=== PATIENT | female | born 1930 | race Caucasian/White ===

== ENCOUNTER 2018-09-21 21:42 | Observation (INO) | payer MEDICARE, OTHER ==
[~2018-09-21] VITALS: Ht 162.6 cm; Wt 75.7 kg
[~2018-09-21 21:42] MED LIST: ALPRAZOLAM; BENADRYL25 MG PO; COZAAR 25 MG TA25 M1 PO; EXFORGE; EXFORGE 5-1601 EACH PO; FENTANYL 0.50 MCG/ML IV PUSH; GABAPENTIN; HYDROCHLOROTHIA25 M2 PO; HYDROCODON-ACE1 EAC7 PO; HYDROCORTISONE30 G9 TOP; KEFLEX500 MG PO; LASIX 40 MG TAB40 M2 PO; LOPRESSOR50 PO; METANX TABLET1 EAC1 PO; MIRALAX255 GM PO; NEURONTIN 300300 M1 PO; ONDANSETRON HCL4 M2 PO; REGLAN 10 MG TA10 M1 PO; REGLAN 10 MG TA10 MG PO; ULTRAM 50MG TAB50 MG PO; XANAX 0.25 MG0.25 MG PO; ZOFRAN4 MG PO
[2018-09-21 22:00] VITALS: BP 132/93
[2018-09-21 22:37] LABS: ABSOLUTE BASOPHILS 0.1 thou/uL (0.0-0.2); ABSOLUTE EOSINOPHILS 0.1 thou/uL (0.0-0.7); ABSOLUTE LYMPHOCYTES 1.6 thou/uL (0.8-5.3); ABSOLUTE MONOCYTES 0.7 thou/uL (0.0-1.2); ABSOLUTE NEUTROPHILS 5.3 thou/uL (1.6-8.1); EOSINOPHILS 0.7 %; LYMPHOCYTES 20.4 %; MCH 32.8 pg (26.0-34.0); MCHC 33.4 g/dL (28.0-37.0); MCV 98.3 fL (80.0-100.0); MONOCYTES 9.2 %; MPV 7.1 fl. (7.2-11.1); NUCLEATED RBCS 0 /100WBC; PLATELET COUNT* 345 thou/uL (150-400); POLYS 68.7 %; RBC 4.58 mil/uL (4.20-5.00); RDW-CV 13.4 % (10.5-14.5); WBC 7.7 thou/uL (4.0-11.0)
[2018-09-21 22:49] LABS: ANION GAP 6 mmol/L (7-16); BUN 15 mg/dL (7-18); CALCIUM 10.2 mg/dL (8.5-10.1); CHLORIDE 102 mmol/L (98-107); CO2 31 mmol/L (21-32); CREATININE 1.1 mg/dL (0.6-1.3); GLUCOSE 129 mg/dL (70-99); SODIUM 139 mmol/L (136-145)
[2018-09-21 23:00] LABS: ALBUMIN 4.1 g/dL (3.4-5.0); ALKALINE PHOSPHATASE 87 U/L (46-116); LIPASE 99 U/L (73-393); NT-PRO BRAIN NAT PEPTIDE 806 pg/mL (<300); SGOT 25 U/L (15-37); SGPT 25 U/L (30-65); TOTAL BILIRUBIN 0.6 mg/dL (<0.1-1.0); TOTAL PROTEIN 7.7 g/dL (6.4-8.2); TROPONIN-I LEVEL <0.06 ng/mL (<0.06)
[2018-09-22] VITALS (8 sets, daily range): BP systolic 133–186; BP diastolic 62–90
[2018-09-22 00:14] LABS: URINE BILIRUBIN NEGATIVE (Negative); URINE BLOOD TRACE (Negative); URINE CLARITY CLEAR; URINE COLOR YELLOW; URINE GLUCOSE-RANDOM NEGATIVE (Negative); URINE KETONES NEGATIVE (Negative); URINE LEUKOCYTES-REFLEX NEGATIVE (Negative); URINE NITRITE-REFLEX NEGATIVE (Negative); URINE PROTEIN NEGATIVE (Negative); URINE UROBILINOGEN 0.2 E.U./dl (0.2-1.0)
--- NOTE | 2018-09-22 02:33 | NUR ---
PT RECIEVED FROM ED. SAT MAINTAINED IN RA. ALERT AND ORIENTED X 4. CALL LIGHT WITHIN REACH AND BED IN LOW POSITION. DENIES PAIN AND SOB. RUNNING SR ON THE MONITOR.
--- NOTE | 2018-09-22 09:07 | NUR ---
ASSUMED CARE OF PT THIS AM AROUND 714- HAZMAT TECHNICIAN IN PLACE ORDERED, TRACING SA WITH 1ST DEGREE- UPON ASSESSMENT PT NOTED TO BE RESTING IN BED- PT A&O X4 WITH FORGETFULLNESS NOTED- CONTINENT OF BOWEL AND BLADDER WITH OCCASSIONAL STRESS INCONTINENTS NOTED REPORTED- LCTA, RESP EVEN AND UN-LABORED- VSS, O2 SAT 93% ON RA- ABD SOFT/ROUND/NON-TENDER, BS X4 QUADS-LAST BM REPORTED THIS AM- PT CURRENLTY NPO ORDERED R/T N/V-IV NOTED TO RIGHT AC INTACT AND SL- PT RATES ABD PAIN 09/07, BUT DENEIS NEEDS FOR PAIN MEDICATIONS AT THIS TIME- CALL LIGHT AND PERSONAL BELONGINGS WITH IN REACH- HOURLY ROUNDS IN PLACE R/T SAFETY/NEEDS- ALL NEEDS MET AT THIS TIME-WCTM
--- NOTE | 2018-09-22 10:30 | EKG ---
[place] [address] ELECTROCARDIOGRAM REPORT Name: MANDIE VASQUEZ Room: [address] ADM IN M.R.#: [id number] Admission: 09/22/18 Attend Phys: Alayna Alvarado Discharge: Date of : 34 Report #: [id number] THIS REPORT FOR: //name// [facility] ED Test Date: 2018-09-21 Test Time: 22:33:39 Pat Name: MANDIE VASQUEZ Department: Room: [facility] Gender: F Account Consultant: AP : 1930 Requested By: Olivia Newton Order Number: [id number] MD: Unruly Barone Measurements Intervals [place] Rate: 58 P: 41 [place]: 223 QRS: -35 QRSD: 96 T: -2 QT: 426 QTc: 419 Interpretive Statements Sinus rhythm Prolonged [place] interval Left ventricular hypertrophy Anterior Q waves, possibly due to LVH Borderline T abnormalities, inferior leads Compared to ECG 05/08/2016 16:53:30 T-wave abnormality now present Electronically Signed On 09-22-2018 10:29:45 JACQUARD LOOM HEDDLES TIER by Unruly Barone [email or web address] <ELECTRONICALLY SIGNED> By: Unruly Barone MD, [facility] 09/22/18 1029 2233 2233 Unruly Barone MD, [facility] /EPI
--- NOTE | 2018-09-22 13:05 | NUR ---
Pt is A&O. Resides at home alone. Normally active and independent. Pt continues to cook and drive, Pt has a cleaning lady. Supportive children that also assist as needed. Pt has a cane and walker that she uses PRN. No home o2. No hx fo HH or SNF. Goal is home at dc, no needs anticipated.
[2018-09-22] MEDS ORDERED: BENTYL 20 MG TA20 M1 PO (13:46)
[2018-09-22] MEDS ORDERED: NEXIUM40 MG PO (13:47)
[2018-09-22] MEDS ORDERED: MIRALAX17 GM PO (13:47)
[2018-09-22] MEDS ORDERED: BENTYL 10 MG CA10 MG PO (13:51)
--- NOTE | 2018-09-22 14:19 | NUR ---
ORDERS GIVEN THIS SHIFT FOR OKAY TO D/C HOME IF ABLE TO TOLERATE REGULAR DIET THIS SHIFT WITH NO COMPLAINTS- PT HAD GOOD PO INTAKE AT LUNCH WITH NO C/O PAIN/DISCOMFORT THIS SHIFT- HERE TO ASSESS WITH OKAY RECIEVIED FOR PT TO BE D/C'D TO HOME- IV TO RIGHT AC D/C'D ALONG WITH INDUSTRIAL CUSTODIAN PRIOR TO D/C- D/C EDUCATION/TEACHING GIVEN TO PT AND SON AT TIMEM OF D/C WITH ALL QUESTIONS AND CONCERNS ADDRESSED- WRITTEN EDUCATION ALONG WITH SCRIPTS PROVIDED TO PT PRIOR TO D/C- NEED FOLLOW UP COMMUNICATED WITH VERBAL UNDERSTANDING RECIEVIED PER PT- BELONGINGS PACKED AND ACCOUNTED FOR PER PT AND SON- PT ESCORTED PER TECH VIA W/C WITH BELONGINGS; SON AT SIDE TO VEHICLE AT 1422- NO PROBLEMS TO NOTE AT TIME OF D/C
== END 2018-09-22 14:22 | disposition home or self-care (01) ==
LOC: M.ERS 21:42 → M.2W 09-22 00:25 → M.TBA-ER 09-22 00:25 → M.2W 09-22 00:25
PROVIDERS: Family Medicine; Nurse Practitioner; ADMIT Internal Medicine
DX: R10.9 Unspecified abdominal pain (principal); R11.2 Nausea with vomiting, unspecified; K58.9 Irritable bowel syndrome, unspecified; K21.9 Gastro-esophageal reflux disease without esophagitis; I12.9 Hypertensive chronic kidney disease with stage 1 through stage 4 chronic kidney disease, or unspecified chronic kidney disease; N18.3 Chronic kidney disease, stage 3 (moderate); G62.9 Polyneuropathy, unspecified; Z79.82 Long term (current) use of aspirin; Z79.899 Other long term (current) drug therapy

== ENCOUNTER 2019-04-28 13:52 | Observation (INO) | payer MEDICARE, OTHER ==
[~2019-04-28] VITALS: Ht 154.9 cm; Wt 78.0 kg
[~2019-04-28 13:52] MED LIST changes: +BENTYL 10 MG CA10 MG PO; +BENTYL 20 MG TA20 M1 PO; +MIRALAX17 GM PO; +NEXIUM40 MG PO
[2019-04-28 13:58] VITALS: BP 149/78
[2019-04-28] MEDS ORDERED: ZESTRIL40 MG PO (14:03)
[2019-04-28] MEDS ORDERED: NORVASC2.5 MG PO (14:03)
[2019-04-28] MEDS ORDERED: ASPIR 8181 MG PO (14:05)
[2019-04-28 14:25] LABS: URINE BILIRUBIN NEGATIVE (Negative); URINE BLOOD 1+ (Negative); URINE CLARITY CLEAR; URINE COLOR YELLOW; URINE GLUCOSE-RANDOM NEGATIVE (Negative); URINE KETONES NEGATIVE (Negative); URINE LEUKOCYTES 1+ (Negative); URINE NITRITE NEGATIVE (Negative); URINE PROTEIN 2+ (Negative); URINE UROBILINOGEN 0.2 E.U./dl (0.2-1.0)
[2019-04-28 14:40] LABS: BACTERIA 1-9 Few /HPF (None Seen); CRYSTALS None Seen /LPF (None Seen); HYALINE CASTS 0-3 Few /LPF (None Seen); MUCUS 0-3 Light strn/LPF (None Seen); SQUAMOUS 4-10 Moderate /LPF (0-3); URINE RBC 3-10 Few /HPF (0-2); URINE WBC 6-15 Few /HPF (0-5)
[2019-04-28 14:42] LABS: ABSOLUTE BASOPHILS 0.1 thou/uL (0.0-0.2); ABSOLUTE EOSINOPHILS 0.1 thou/uL (0.0-0.7); ABSOLUTE LYMPHOCYTES 1.4 thou/uL (0.8-5.3); ABSOLUTE MONOCYTES 0.7 thou/uL (0.0-1.2); BASOPHILS 1.1 %; EOSINOPHILS 0.8 %; HEMATOCRIT 43.8 % (37.0-47.0); HEMOGLOBIN 14.8 gm/dL (12.0-15.0); LYMPHOCYTES 19.7 %; MCH 34.1 pg (26.0-34.0); MCHC 33.7 g/dL (28.0-37.0); MCV 101.1 fL (80.0-100.0); MONOCYTES 10.2 %; NUCLEATED RBCS 0 /100WBC; PLATELET COUNT* 365 thou/uL (150-400); POLYS 68.2 %; RBC 4.34 mil/uL (4.20-5.00); RDW-CV 13.7 % (10.5-14.5); WBC 7.3 thou/uL (4.0-11.0)
[2019-04-28 15:02] LABS: CALCIUM 9.5 mg/dL (8.5-10.1); POTASSIUM 4.3 mmol/L (3.5-5.1)
[2019-04-28 15:06] LABS: ALBUMIN 4.3 g/dL (3.4-5.0); TOTAL BILIRUBIN 0.5 mg/dL (<0.1-1.0); TOTAL PROTEIN 7.3 g/dL (6.4-8.2)
[2019-04-28 15:40] VITALS: BP 116/95
[2019-04-28 18:17] VITALS: BP 146/48
[2019-04-28 19:26] VITALS: BP 154/80
[2019-04-29] VITALS: BP 140/59
[2019-04-29 04:00] VITALS: BP 145/94
[2019-04-29 04:59] LABS: CALCIUM 8.5 mg/dL (8.5-10.1); CREATININE 0.9 mg/dL (0.6-1.3); MAGNESIUM 2.1 mg/dL (1.8-2.4); POTASSIUM 3.6 mmol/L (3.5-5.1)
[2019-04-29 05:02] LABS: ABSOLUTE EOSINOPHILS 0.2 thou/uL (0.0-0.7); ABSOLUTE LYMPHOCYTES 1.5 thou/uL (0.8-5.3); ABSOLUTE MONOCYTES 0.9 thou/uL (0.0-1.2); ABSOLUTE NEUTROPHILS 5.9 thou/uL (1.6-8.1); BASOPHILS 0.5 %; EOSINOPHILS 1.9 %; HEMOGLOBIN 13.1 gm/dL (12.0-15.0); LYMPHOCYTES 17.7 %; MCH 34.1 pg (26.0-34.0); MCHC 33.5 g/dL (28.0-37.0); MCV 101.8 fL (80.0-100.0); MONOCYTES 10.3 %; MPV 6.4 fl. (7.2-11.1); NUCLEATED RBCS 0 /100WBC; PLATELET COUNT* 319 thou/uL (150-400); POLYS 69.6 %; RBC 3.83 mil/uL (4.20-5.00); RDW-CV 13.7 % (10.5-14.5); WBC 8.5 thou/uL (4.0-11.0)
[2019-04-29 08:00] VITALS: BP 146/67
[2019-04-29 12:16] VITALS: BP 119/53
[2019-04-29] MEDS ORDERED: MIRALAX17 GM PO (12:22)
[2019-04-29] MEDS ORDERED: NEXIUM40 MG PO (12:22)
[2019-04-29 13:37] VITALS: BP 119/53
--- NOTE | 2019-04-30 07:34 | EKG ---
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: : 1930 Requested By: Jaswinder Abraham Order Number: [id number] MD: Akbar Carbajal Measurements Intervals [place] Rate: 70 P: 45 [place]: 251 QRS: -38 QRSD: 94 T: -15 QT: 401 QTc: 433 Interpretive Statements Sinus rhythm Atrial premature complex Prolonged [place] interval Left ventricular hypertrophy Anterior infarct, old Borderline T abnormalities, inferior leads Compared to ECG 09/21/2018 22:33:39 Atrial premature complex(es) now present T-wave abnormality still present Electronically Signed On 04-30-2019 7:33:51 CDT by Akbar Carbajal [email or web address] <ELECTRONICALLY SIGNED> By: Akbar Carbajal MD, FACC 04/30/19 0733 1604 1604 Akbar Carbajal MD, FAC /EPI
== END 2019-04-29 14:35 | disposition home or self-care (01) ==
LOC: M.ERS 13:52 → M.TBA-ER 15:24 → M.2W 15:24 → M.ERS 15:41 → M.TBA-ER 15:55 → M.2W 18:27
PROVIDERS: Nurse Practitioner Family; ADMIT Family Medicine
DX: N39.0 Urinary tract infection, site not specified (principal); I16.1 Hypertensive emergency; I12.9 Hypertensive chronic kidney disease with stage 1 through stage 4 chronic kidney disease, or unspecified chronic kidney disease; N18.3 Chronic kidney disease, stage 3 (moderate); K58.1 Irritable bowel syndrome with constipation; K21.9 Gastro-esophageal reflux disease without esophagitis; R11.2 Nausea with vomiting, unspecified; F41.9 Anxiety disorder, unspecified; G62.9 Polyneuropathy, unspecified; Z88.8 Allergy status to other drugs, medicaments and biological substances; Z79.82 Long term (current) use of aspirin; Z79.899 Other long term (current) drug therapy

== ENCOUNTER → 2019-05-24 | Outpatient (CLI) | payer MEDICARE, OTHER ==
[~2019-05-24] MED LIST changes: +ASPIR 8181 MG PO; +NORVASC2.5 MG PO; +ZESTRIL40 MG PO
== END ==
LOC: M.ULTRA 07:31
DX: R11.2 Nausea with vomiting, unspecified (principal); R10.13 Epigastric pain

== ENCOUNTER → 2020-07-07 | Outpatient (CLI) | payer MEDICARE, OTHER ==
--- NOTE | 2020-07-07 15:10 | 2DMMODE ---
[place] [address] 2 D/M-MODE ECHOCARDIOGRAM Name: MANDIE VASQUEZ Room: [facility]#: [id number] Admission: 07/07/20 Attend Phys: Kiersten Rosen Discharge: Date of : 34 Date of Service: 07/07/20 1510 Report #: [id number] THIS REPORT FOR: cc: Frank Tolliver MD, Matthew W. MD Holkins, John M. MD [facility] ~ APPROVED REPORT Study performed: 07/07/2020 10:42:36 EXAM: Comprehensive 2D, Doppler, and color-flow Echocardiogram Patient Location: Out-Patient BSA: 1.85 HR: 58 bpm BP: 152/88 mmHg Other Information Study Quality: Good Indications Hypertension/HDD 2D Dimensions IVSd: 14.16 (7-11mm) LVOT Diam: 20.45 (18-24mm) LVDd: 39.43 mm PWd: 10.94 (7-11mm) Ascending Ao: 31.06 (22-36mm) LVDs: 27.13 (25-40mm) Aortic Root: 28.02 mm Volumes Left Atrial Volume (Systole) LA ESV Index: 18.50 mL/m2 Aortic Valve AoV Peak Giuseppe.: 1.48 m/s AO Peak Gr.: 8.75 mmHg LVOT Max P.20 mmHg AO Mean Gr.: 4.35 mmHg LVOT Mean P.83 mmHg LVOT Max V: 1.02 m/s AO V2 VTI: 30.57 cm LVOT Mean V: 0.60 m/s GRECIA (VTI): 2.67 cm2 LVOT V1 VTI: 24.83 cm AI Alger: 2.68 m/s2 AI PHT: 489.10 [place] [address] 2 D/M-MODE ECHOCARDIOGRAM Name: MANDIE VASQUEZ Room: [facility]#: [id number] Admission: 07/07/20 Attend Phys: Kiersten Rosen Discharge: Date of : 34 Date of Service: 07/07/20 1510 Report #: [id number] Mitral Valve E/A Ratio: 0.80 MV Decel. Time: 252.78 ms MV E Max Giuseppe.: 0.68 m/s MV PHT: 73.31 ms MVA (PHT): 3.00 cm2 TDI E/Lateral E': 6.80 E/Medial E': 11.33 Medial E' Giuseppe.: 0.06 m/s Lateral E' Giuseppe.: 0.10 m/s Pulmonary Valve PV Peak Giuseppe.: 0.71 m/s PV Peak Gr.: 2.03 mmHg Tricuspid Valve RAP Estimate: 5.00 mmHg TR Peak Gr.: 18.37 mmHg RVSP: 23.37 mmHg PA Pressure: 23.37 mmHg Left Ventricle The left ventricle is normal size. There is normal LV segmental wall motion. There is normal left ventricular wall thickness. Left ventricular systolic function is normal. The left ventricular ejection fraction is within the normal range. LVEF is 55-60%. Grade I - abnormal relaxation pattern. Right Ventricle The right ventricle is normal size. The right ventricular systolic function is normal. Atria The left atrium size is normal. The right atrium size is normal. Aortic Valve Aortic valve is mildly calcified. Mild to moderate aortic regurgitation. There is no aortic valvular stenosis. Mitral Valve Mild mitral annular calcification. Mild mitral regurgitation. No evidence of mitral valve stenosis. Tricuspid Valve The tricuspid valve is normal in structure. Mild [place] [address] 2 D/M-MODE ECHOCARDIOGRAM Name: MANDIE VASQUEZ Room: [facility]#: [id number] Admission: 07/07/20 Attend Phys: Kiersten Rosen Discharge: Date of : 34 Date of Service: 07/07/20 1510 Report #: [id number] Pulmonic Valve The pulmonary valve is normal in structure. There is no pulmonic valvular regurgitation. Great Vessels The aortic root is normal in size. IVC is normal in size and collapses >50% with inspiration. Pericardium There is no pericardial effusion. <Conclusion> There is normal left ventricular wall thickness. Left ventricular systolic function is normal. The left ventricular ejection fraction is within the normal range. LVEF is 55-60%. Grade I - abnormal relaxation pattern. The right ventricle is normal size. The left atrium size is normal. Aortic valve is mildly calcified. Mild to moderate aortic regurgitation. There is no aortic valvular stenosis. Mild mitral annular calcification. Mild mitral regurgitation. The tricuspid valve is normal in structure. Mild tricuspid regurgitation. IVC is normal in size and collapses >50% with inspiration. There is no pericardial effusion. There is normal LV segmental wall motion. The left ventricle is normal size. <ELECTRONICALLY SIGNED> By: Unruly Barone MD, FACC 07/07/201509 09 09 Unruly Barone MD, FACC /INF
== END ==
LOC: M.CRD 07-02 09:00
PROVIDERS: ATTEND Family Medicine
DX: I08.3 Combined rheumatic disorders of mitral, aortic and tricuspid valves (principal)

== ENCOUNTER 2020-10-21 13:47 | Inpatient (IN) | payer MEDICARE, OTHER ==
[~2020-10-21] VITALS: Ht 165.1 cm; Wt 81.2 kg
[~2020-10-21 13:47] MED LIST changes: +NORVASC 2.5 MG2.5 M1 PO; -NORVASC2.5 MG PO
[2020-10-21 14:32] LABS: ABSOLUTE BASOPHILS 0.1 thou/uL (0.0-0.2); ABSOLUTE EOSINOPHILS 0.1 thou/uL (0.0-0.7); ABSOLUTE LYMPHOCYTES 1.6 thou/uL (0.8-5.3); ABSOLUTE MONOCYTES 0.7 thou/uL (0.0-1.2); ABSOLUTE NEUTROPHILS 6.1 thou/uL (1.6-8.1); BASOPHILS 0.7 %; EOSINOPHILS 0.7 %; HEMOGLOBIN 14.4 gm/dL (12.0-15.0); LYMPHOCYTES 18.8 %; MCH 32.2 pg (26.0-34.0); MCHC 33.4 g/dL (28.0-37.0); MCV 96.5 fL (80.0-100.0); MONOCYTES 8.4 %; MPV 6.8 fl. (7.2-11.1); NUCLEATED RBCS 0 /100WBC; PLATELET COUNT* 368 thou/uL (150-400); POLYS 71.4 %; RBC 4.46 mil/uL (4.20-5.00); WBC 8.5 thou/uL (4.0-11.0)
[2020-10-21 14:40] LABS: CALCIUM 9.5 mg/dL (8.5-10.1); CREATININE 1.2 mg/dL (0.6-1.3); POTASSIUM 4.3 mmol/L (3.5-5.1)
[2020-10-21 14:44] LABS: ALBUMIN 4.4 g/dL (3.4-5.0); TOTAL BILIRUBIN 0.5 mg/dL (<0.1-1.0); TOTAL PROTEIN 7.6 g/dL (6.4-8.2)
[2020-10-21 14:51] LABS: URINE BILIRUBIN NEGATIVE (Negative); URINE BLOOD TRACE (Negative); URINE CLARITY CLEAR; URINE COLOR YELLOW; URINE GLUCOSE-RANDOM NEGATIVE (Negative); URINE KETONES NEGATIVE (Negative); URINE LEUKOCYTES-REFLEX NEGATIVE (Negative); URINE NITRITE-REFLEX NEGATIVE (Negative); URINE PROTEIN 2+ (Negative); URINE SPECIFIC GRAVITY 1.025 (1.005-1.030); URINE UROBILINOGEN 0.2 E.U./dl (0.2-1.0)
[2020-10-21 15:00] LABS: SQUAMOUS 0-3 Few /LPF (0-3); URINE RBC 0-2 Rare /HPF (0-2); URINE WBC-REFLEX None Seen /HPF (0-5)
[2020-10-21 15:01] LABS: BACTERIA-REFLEX 1-9 Few /HPF (None Seen); CASTS None Seen /LPF (None Seen); CRYSTALS None Seen /LPF (None Seen); MUCUS 0-3 Light strn/LPF (None Seen)
[2020-10-21] MEDS ORDERED: COZAAR 25 MG TA25 M2 PO (17:12)
--- NOTE | 2020-10-21 17:45 | EKG ---
[place] [address] ELECTROCARDIOGRAM REPORT Name: MANDIE VASQUEZ Room: [place] [address] ADM IN M.R.#: [id number] Admission: 10/21/20 Attend Phys: Karen Infante, Discharge: Date of : 34 Date of Service: 10/21/20 1410 Report #: [id number] THIS REPORT FOR: //name// [facility] ED Test Date: 2020-10-21 Test Time: 14:10:51 Pat Name: MANDIE VASQUEZ Department: Room: [facility] Gender: F Clinical Services Assistant: EMA : 1930 Requested By: Ro Mora Order Number: [id number] MD: Jimmie Steele Measurements Intervals [place] Rate: 66 P: 39 [place]: 225 QRS: -41 QRSD: 96 T: 53 QT: 413 QTc: 433 Interpretive Statements Sinus rhythm Prolonged [place] interval Left anterior fascicular block Compared to ECG 04/28/2019 16:04:12 Left anterior fascicular block now present Atrial premature complex(es) no longer present Myocardial infarct finding no longer present Electronically Signed On 10-21-2020 17:45:23 WARRANTY COORDINATOR by Jimmie Steele [email or web address] <ELECTRONICALLY SIGNED> By: Jimmie Steele MD, [facility] 10/21/20 1745 141 141 Jimmie Steele MD, [facility] /EPI
[2020-10-21 20:49] VITALS: BP 151/64
[2020-10-21 21:00] VITALS: BP 139/68
[2020-10-21 23:43] VITALS: BP 109/58
[2020-10-21] MEDS ORDERED: BENTYL 10 MG CA10 MG PO (23:56)
--- NOTE | 2020-10-22 03:38 | NUR ---
RECIEVED REPORT FROM ED RN. PT TRASNFERRED TO RM 220. PT A&OX4. VSS. CLIENT MANAGER IN PLACE. ADMISSION HISTORY AND PHYSICAL ASSESSMENT COMPLETED AND CHARTED. PT ON RA. PT TRACING SR/ DEG/PAC ON TELE. PT UPADLIB TO BSC. MEDS GIVEN PER OCT. PT INSTRUCTED NPO POST MIDNIGHT ORDERED FOR CARDIO CONSULT. COMMUNICATES UNDERSTANDING. CALL LIGHT WITHIN REACH.
[2020-10-22 04:00] VITALS: BP 118/43
[2020-10-22 04:53] LABS: HEMATOCRIT 35.4 % (37.0-47.0); MCH 32.7 pg (26.0-34.0); MCHC 34.2 g/dL (28.0-37.0); MCV 95.7 fL (80.0-100.0); MPV 6.4 fl. (7.2-11.1); RBC 3.7 mil/uL (4.20-5.00); RDW-CV 12.8 % (10.5-14.5); WBC 8.7 thou/uL (4.0-11.0)
[2020-10-22 05:07] LABS: HEMOGLOBIN 12.1 gm/dL (12.0-15.0)
[2020-10-22 05:20] LABS: ALBUMIN 3.4 g/dL (3.4-5.0); CALCIUM 8.3 mg/dL (8.5-10.1); MAGNESIUM 2.1 mg/dL (1.8-2.4); POTASSIUM 3.9 mmol/L (3.5-5.1); TOTAL BILIRUBIN 0.4 mg/dL (<0.1-1.0); TOTAL PROTEIN 6.1 g/dL (6.4-8.2)
[2020-10-22 08:10] VITALS: BP 129/54
--- NOTE | 2020-10-22 09:50 | NUR ---
CM SPOKE TO THE PT TO DISCUSS CM ASSESSMENT. PT A&O, NORMALLY ACTIVE AND INDEPENDENT WITH ADL'S, PREPARES OWN MEALS, AND DRIVES. PT RESIDES AT HOME ALONE. PT INFORMS THAT HER SON IS SUPPORTIVE AND PROVIDES TRANSPORTATION TO APPOINTMENTS. PT USES A CANE FOR MOBILITY. PT HAS 0 HX OF HH OR SNF. CM WILL REMAIN AVAILABLE TO ASSIST AND FOLLOW NEEDED.
[2020-10-22 11:19] VITALS: BP 136/49
--- NOTE | 2020-10-22 11:55 | NUR ---
ASSUMED CARE OF PT AT 0730. PT SITTING UP AT EDGE OF BED. DENIES ANY PAIN OR SHORTNESS OF BREATH AT THIS TIME. TRACING SB WITH FIRST DEGREE ON THE CONTEMPORARY OR MODERN DANCER. CARDIOLOGY HERE TO SEE PT. ORDERS RECEIVED TO START ELIQUIS AND FLECAINIDE. REFER TO EMAR. PT A&0X4. ON RA SAT UPPER 90'S. PT UP AD ARIELA TO BSC. PT STATES SHE FEELS MUCH BETTER AFTER HAVING MULTIPLE BOWEL MOVEMENTS. IVF. PT GOAL FOR TODAY IS REMAIN IN SINUS RHYTHM AND OBTAIN ECHO. AM ASSESSMENT CHARTED. MEDICATIONS PER OCT. PT REPOSITIONS SELF. HOURLY ROUNDING OBSERVED. BED IN LOW POSITION. CALL LIGHT WITHIN REACH. WILL CONTINUE PLAN OF CARE.
--- NOTE | 2020-10-22 15:16 | 2DMMODE ---
[place] [address] 2 D/M-MODE ECHOCARDIOGRAM Name: CHRISTINAMANDIE RUFUS Room: [address] IN .R.#: [id number] Admission: 10/21/20 Attend Phys: Karen Infante, Discharge: Date of : 34 Date of Service: 10/22/20 1516 Report #: [id number] THIS REPORT FOR: cc: Frank Tolliver MD, Matthew W. MD Holkins, John M. MD [facility] ~ APPROVED REPORT Study performed: 10/22/2020 10:31:47 EXAM: Comprehensive 2D, Doppler, and color-flow Echocardiogram Patient Location: In-Patient Room #: 220 Status: routine BSA: 1.89 HR: 86 bpm BP: 129/54 mmHg Rhythm: NSR Other Information Study Quality: Good Indications Atrial Fibrillation 2D Dimensions IVSd: 10.99 (7-11mm) LVOT Diam: 20.06 (18-24mm) LVDd: 44.57 mm PWd: 10.15 (7-11mm) Ascending Ao: 35.39 (22-36mm) LVDs: 25.85 (25-40mm) Aortic Root: 37.69 mm Volumes Left Atrial Volume (Systole) LA ESV Index: 31.60 mL/m2 Aortic Valve AoV Peak Giuseppe.: 1.67 m/s AO Peak Gr.: 11.22 mmHg LVOT Max P.39 mmHg AO Mean Gr.: 5.35 mmHg LVOT Mean P.38 mmHg LVOT Max V: 1.16 m/s AO V2 VTI: 30.84 cm LVOT Mean V: 0.69 m/s GRECIA (VTI): 2.55 cm2 LVOT V1 VTI: 24.93 cm AI Jones: 1.58 m/s2 [place] [address] 2 D/M-MODE ECHOCARDIOGRAM Name: MANDIE VASQUEZ Room: [address] IN M.R.#: [id number] Admission: 10/21/20 Attend Phys: Karen Infante, Discharge: Date of : 34 Date of Service: 10/22/20 1516 Report #: [id number] AI PHT: 683.56 ms Mitral Valve E/A Ratio: 1.29 MV Decel. Time: 224.08 ms MV E Max Giuseppe.: 1.27 m/s MV PHT: 64.98 ms MVA (PHT): 3.39 cm2 TDI E/Lateral E': 14.11 E/Medial E': 14.11 Medial E' Giuseppe.: 0.09 m/s Lateral E' Giuseppe.: 0.09 m/s Pulmonary Valve PV Peak Giuseppe.: 0.91 m/s PV Peak Gr.: 3.30 mmHg Tricuspid Valve RAP Estimate: 5.00 mmHg TR Peak Gr.: 23.98 mmHg RVSP: 28.00 mmHg PA Pressure: 28.00 mmHg Left Ventricle The left ventricle is normal size. There is normal LV segmental wall motion. There is normal left ventricular wall thickness. Left ventricular systolic function is normal. The left ventricular ejection fraction is within the normal range. LVEF is 60-65%. The left ventricular diastolic function is normal. Right Ventricle The right ventricle is normal size. The right ventricular systolic function is normal. Atria The left atrium size is normal. The right atrium size is normal. Aortic Valve Mild aortic valve sclerosis. Mild aortic regurgitation. There is no aortic valvular stenosis. Mitral Valve Mild mitral annular calcification. Trace mitral regurgitation. No evidence of mitral valve stenosis[place] [address] 2 D/M-MODE ECHOCARDIOGRAM Name: MANDIE VASQUEZ Room: [address] IN [facility]#: [id number] Admission: 10/21/20 Attend Phys: Karen Infante, Discharge: Date of : 34 Date of Service: 10/22/20 1516 Report #: [id number] The tricuspid valve is normal in structure. Mild tricuspid regurgitation. Pulmonic Valve The pulmonary valve is normal in structure. There is no pulmonic valvular regurgitation. Great Vessels The aortic root is normal in size. IVC is normal in size and collapses >50% with inspiration. Pericardium There is no pericardial effusion. <Conclusion> The left ventricle is normal size. There is normal left ventricular wall thickness. Left ventricular systolic function is normal. The left ventricular ejection fraction is within the normal range. LVEF is 60-65%. The left ventricular diastolic function is normal. The right ventricle is normal size. The left atrium size is normal. Mild aortic valve sclerosis. Mild aortic regurgitation. There is no aortic valvular stenosis. Mild mitral annular calcification. Trace mitral regurgitation. No evidence of mitral valve stenosis. The tricuspid valve is normal in structure. Mild tricuspid regurgitation. IVC is normal in size and collapses >50% with inspiration. There is no pericardial effusion. There is normal LV segmental wall motion. <ELECTRONICALLY SIGNED> By: Unruly Barone MD, FACC 10/22/20 1516 1516 1516 Unruly Barone MD, FACC /INF
--- NOTE | 2020-10-22 15:30 | EKG ---
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 Since the prior tracing wide QRS tachycardia is noted Electronically Signed On 10-22-2020 15:29:56 IT INFRASTRUCTURE MANAGER by Unruly Barone [email or web address] <ELECTRONICALLY SIGNED> By: Unruly Barone MD, [facility] 10/22/20 1529 1501 1501 Unruly Barone MD, [facility] /EPI
[2020-10-22 16:30] VITALS: BP 135/106
[2020-10-22 20:00] VITALS: BP 125/99
[2020-10-23 00:47] VITALS: BP 159/66
[2020-10-23 04:00] VITALS: BP 120/48
[2020-10-23 04:35] LABS: HEMATOCRIT 33.9 % (37.0-47.0); HEMOGLOBIN 11.5 gm/dL (12.0-15.0); MCV 97.1 fL (80.0-100.0); MPV 6.9 fl. (7.2-11.1); RBC 3.5 mil/uL (4.20-5.00); RDW-CV 13.1 % (10.5-14.5); WBC 7.9 thou/uL (4.0-11.0)
[2020-10-23 05:10] LABS: CALCIUM 8.3 mg/dL (8.5-10.1); CREATININE 0.9 mg/dL (0.6-1.3); POTASSIUM 3.9 mmol/L (3.5-5.1)
--- NOTE | 2020-10-23 07:04 | NUR ---
PATIENT SLEPT MOST OF THE NIGHT. IV FLUIDS CONTINUE TO INFUSE AT 70 ML/HR. PATIENT HAD NO COMPLAINTS OF PAIN. PATIENT IS POSSIBLY GOING HOME TODAY. WILL CONTINUE TO MONITOR.
[2020-10-23] MEDS ORDERED: ELIQUIS5 MG PO (08:35)
[2020-10-23] MEDS ORDERED: MIRALAX17 GM PO (08:35)
[2020-10-23] MEDS ORDERED: SENEXON-S 50-81 EACH PO (08:35)
[2020-10-23] MEDS ORDERED: FLECAINIDE ACET50 M1 PO (08:35)
[2020-10-23 10:56] VITALS: BP 120/48
--- NOTE | 2020-10-23 13:09 | NUR ---
CM INFORMED DURING PRIME ROUNDING OF THE PLAN OF CARE FOR THE PT. PLAN FOR THE PT TO D/C HOME TODAY WITH SELF-CARE AND NO NEEDS. CM WILL REMAIN AVAILABLE TO ASSIST AND FOLLOW NEEDED.
== END 2020-10-23 11:30 | disposition home or self-care (01) | DRG 392 ==
LOC: M.ERS 13:47 → M.TBA-ER 17:29 → M.2W 17:29
PROVIDERS: Family Medicine; Nurse Practitioner Family; ADMIT Internal Medicine; ATTEND Internal Medicine
DX: K59.00 Constipation, unspecified (principal); D68.69 Other thrombophilia; I48.0 Paroxysmal atrial fibrillation; Z20.822 Contact with and (suspected) exposure to COVID-19; I10 Essential (primary) hypertension; F41.9 Anxiety disorder, unspecified; G25.0 Essential tremor; G62.9 Polyneuropathy, unspecified; Z88.8 Allergy status to other drugs, medicaments and biological substances; Z79.82 Long term (current) use of aspirin; Z79.899 Other long term (current) drug therapy